=== PATIENT | female | born 1990 | race Asian ===

== ENCOUNTER 2016-11-30 01:15 | Inpatient (IN) | payer SELFPAY ==
[~2016-11-30] VITALS: Ht 164 cm; Wt 61.2 kg
[2016-11-30] MEDS ORDERED: OXYTOCIN 10 UNITS/ML VIAL IM SCH (02:15)
[2016-11-30] MEDS ORDERED: PROMETHAZINE 25 MG/ML VIAL IVP PRN (02:15)
[2016-11-30] MEDS ORDERED: NALBUPHINE HYDROCHLORIDE 10 MG/ML VIAL IVP PRN (02:15)
[2016-11-30] MEDS ORDERED: MISOPROSTOL 25 MCG TAB VG PRN (02:15)
[2016-11-30] MEDS ORDERED: OXYTOCIN 20 UNITS/LR PREMIX 1,000 ML IV SCH (02:15)
[2016-11-30] MEDS: LACTATED RINGERS 1,000 ML IV SCH ×4 (02:49→17:34)
[2016-11-30] MEDS ORDERED: ROPIVACAINE 0.2%/NS PREMIX 250 ML EPI ONE (02:59)
[2016-11-30] MEDS ORDERED: MISOPROSTOL 25 MCG TAB ONE (04:09)
[2016-11-30 05:13] VITALS: BP 128/71
[2016-11-30] MEDS ORDERED: PRENATAL VITAMI1 TA2 PO (05:16)
--- NOTE | 2016-11-30 09:12 | NUR ---
PATIENT HAS BEEN SCREENED AND CATEGORIZED LOW RISK. PATIENT WILL BE SEEN WITHIN 7 DAYS OF ADMISSION. 12/07/[address]
[2016-11-30] MEDS ORDERED: OXYTOCIN 20 UNITS/LR PREMIX 1,000 ML IV ONE (11:18)
[2016-11-30] MEDS ORDERED: MEASLES, MUMPS, AND RUBELLA 1 VIAL SQVAC PRN (20:05)
[2016-11-30] MEDS ORDERED: BENZOCAINE/MENTHOL 20%-0.5% 60 GM CAN TP PRN (20:05)
[2016-11-30] MEDS ORDERED: HYDROcodone/APAP 5/325 MG 1 TAB TAB PO PRN (20:05)
[2016-11-30] MEDS ORDERED: METHYLERGONOVINE 0.2 MG/ML AMP IM PRN (20:05)
[2016-11-30] MEDS ORDERED: OXYTOCIN 10 UNITS/ML VIAL IM PRN (20:05)
[2016-11-30] MEDS ORDERED: WITCH HAZEL 40 PAD PACKAGE TP PRN (20:05)
[2016-11-30] MEDS ORDERED: TEMAZEPAM 15 MG CAP PO PRN (20:05)
[2016-11-30] MEDS ORDERED: oxyCODONE/APAP 5/325 MG 1 TAB TAB PO PRN (20:05)
[2016-11-30] MEDS ORDERED: DOCUSATE SOD/SENNA 50/8.6 MG 1 TAB PO SCH (21:00)
[2016-11-30] MEDS ORDERED: oxyCODONE/APAP 5/325 MG 1 TAB TAB ONE (21:13)
[2016-12-01] MEDS: IBUPROFEN 800 MG TAB PO PRN ×2 (08:55→20:38)
[2016-12-02] MEDS: IBUPROFEN 800 MG TAB PO PRN (09:02)
== END 2016-12-02 15:05 | disposition home or self-care (01) | DRG 775 ==
LOC: MFCC 01:15
PROVIDERS: ADMIT Obstetrics & Gynecology; ATTEND Obstetrics & Gynecology
PROC: 10E0XZZ Delivery of Products of Conception, External Approach (ICD-10-PCS; principal; 2016-11-30)
PROC: 0W8NXZZ Division of Female Perineum, External Approach (ICD-10-PCS; 2016-11-30)
PROC: 3E0P7GC Introduction of Other Therapeutic Substance into Female Reproductive, Via Natural or Artificial Opening (ICD-10-PCS; 2016-11-30)
PROC: 00HU33Z Insertion of Infusion Device into Spinal Canal, Percutaneous Approach (ICD-10-PCS; 2016-11-30)
PROC: 3E0R3CZ (ICD-10-PCS; 2016-11-30)
DX: O69.81X0 Labor and delivery complicated by cord around neck, without compression, not applicable or unspecified (principal); Z3A.39 39 weeks gestation of pregnancy; Z37.0 Single live birth